=== PATIENT | male | born 1935 | race Asian ===

== ENCOUNTER 2019-06-22 18:36 | Inpatient (IN) | payer OTHER ==
[~2019-06-22] VITALS: Ht 167.6 cm; Wt 66.3 kg
[2019-06-22 19:33] LABS: Basophils # (auto) 0.1 10 ^3/uL (0-0.2); Basophils % (auto) 0.6 % (0.0-2.0); Eosinophils # (auto) 0.6 10 ^3/uL (0-0.8); Eosinophils % (auto) 6.6 % (0.0-7.0); Hematocrit 34.2 % (41.0-53.0); Hemoglobin 11.2 g/dL (13.5-17.5); Lymphocytes % (auto) 23.1 % (10.0-50.0); Mean Corpuscular Hemoglobin 31.4 pg (28.0-32.0); Mean Corpuscular Hgb Conc. 32.8 g/dL (32.0-36.0); Mean Corpuscular Volume 95.8 fL (80.0-100.0); Monocytes # (auto) 0.8 10 ^3/uL (0-1.3); Monocytes % (auto) 9.5 % (0.0-12.0); Neutrophils # (auto) 5.1 10 ^3/uL (1.6-8.6); Neutrophils % (auto) 60.2 % (37.0-80.0); Nucleated Red Blood Cells % 0.1 %; Platelet Count (auto) 182 10^3/uL (140-450); Red Blood Cells 3.57 10^6/uL (4.5-5.90); Red Cell Distribution Width 14.5 % (11.8-14.3); White Blood Cell 8.5 10^3/uL (4.4-10.8)
[2019-06-22 19:38] LABS: Albumin 3.6 g/dL (3.4-5.0); Anion Gap 7 (5-15); Blood Urea Nitrogen 22 mg/dL (7-18); Calcium 8.9 mg/dL (8.5-10.1); Carbon Dioxide 28 mmol/L (21-32); Chloride 105 mmol/L (98-107); Glucose 129 mg/dL (74-106); Potassium 4.1 mmol/L (3.5-5.1); Sodium 140 mmol/L (136-145)
[2019-06-22 19:44] LABS: Alanine Aminotransferase 36 U/L (16-61); Alkaline Phosphatase 142 U/L (45-117); Aspartate Aminotransferase 37 U/L (15-37); BUN/Creatinine Ratio 14.2; Bilirubin, Total 0.3 mg/dL (0.2-1.0); GFR African American 55 mL/min; GFR Non-African American 46 mL/min
[2019-06-22] MEDS ORDERED: MORPHINE SULF INJ 2 MG/ML SYRINGE 1ML IV ONE (21:15)
[2019-06-22] MEDS ORDERED: ONDANSETRON HCL 4 MG/2 ML VIAL IV ONE (21:15)
[2019-06-22] MEDS ORDERED: MORPHINE SULFATE 4 MG/ML SYR/VIAL IV PRN (22:15)
[2019-06-22] MEDS ORDERED: NITROGLYCERIN 0.4 MG SL TAB SL PRN ×2 (22:15)
[2019-06-22] MEDS ORDERED: ONDANSETRON HCL 4 MG/2 ML VIAL IV PRN (22:15)
[2019-06-22] MEDS ORDERED: MORPHINE SULF INJ 2 MG/ML SYRINGE 1ML IV PRN (22:15)
[2019-06-22 22:16] LABS: Partial Thromboplastin Time 25.4 sec (23.64-32.05)
[2019-06-22] MEDS: SODIUM CHLORIDE 0.9% 1,000 ML IV SCH (22:21)
[2019-06-23 02:25] VITALS: BP 166/82
--- NOTE | 2019-06-23 02:25 | NUR ---
Telemetry admit from [facility] admitted to Telemetry unit. Patient oriented to TATUM HUDDLESTON, primary RN, unit, room, bed, and unit policies regarding patient care and visiting hours. Patient now on continuous telemetry monitoring, tele box #[id number] and telemetry reading on arrival to unit is sinus rhythm. Patient placed on bedside oxygen, weighed by bedscale and encouraged to call if they need something. All questions and concerns addressed, patient verbalized understanding. Bed is locked in lowest position, side rails x 2 are up, call light is within reach, and bed alarm is on.
--- NOTE | 2019-06-23 03:00 | NUR ---
Chest Pain Patient complaining of chest pain to left side of his chest, mid to posterior axillary area (pain scale 6/10). Patient reports the chest pain has been intermittent x2 days. Patient denies nausea or shortness of breath at this time. EKG was performed and placed in hardchart. Vital signs were the following: Temp: 99.0, BP: 166/82, HR: 78, SPO2: 96% on room air, and RR: 18. Patient was medicated with nitroglycerin at 03:13 (see eMAR). Post nitroglycerin administration, patient's vital signs were the following: BP: 141/74, HR: 69, RR: 18, SPO2: 100% on 2L, NC. Patient reports improvement in his chest pain and now rates the pain as 4/10. No signs/symptoms of distress noted or verbalized at this time. Patient is laying in bed with even and unlabored respirations. Bed is locked in lowest position, side rails x 2 are up, call light is within reach, and bed alarm is on. Addendum: 06/23/19 at 0416 by TATUM HUDDLESTON RN RN No changes from baseline EKG.
[2019-06-23] MEDS ORDERED: LINA5TAB PO (04:07)
[2019-06-23] MEDS ORDERED: ATOR10TA52 PO (04:07)
[2019-06-23] MEDS ORDERED: GABA100C9 PO (04:07)
[2019-06-23] MEDS ORDERED: CARV3.1240 PO (04:07)
[2019-06-23] MEDS ORDERED: ASPI-404 PO (04:07)
[2019-06-23] MEDS ORDERED: AMLO5TAB15 PO ×2 (04:07→16:44)
[2019-06-23] MEDS ORDERED: LOSA25TA38 PO (04:07)
[2019-06-23 05:00] VITALS: BP 122/65
[2019-06-23 06:04] LABS: Basophils # (auto) 0 10 ^3/uL (0-0.2); Basophils % (auto) 0.6 % (0.0-2.0); Eosinophils # (auto) 0.5 10 ^3/uL (0-0.8); Eosinophils % (auto) 6.6 % (0.0-7.0); Hematocrit 31.1 % (41.0-53.0); Hemoglobin 10.5 g/dL (13.5-17.5); Lymphocytes # (auto) 1.4 10 ^3/uL (0.4-5.4); Lymphocytes % (auto) 17.5 % (10.0-50.0); Mean Corpuscular Hemoglobin 32.2 pg (28.0-32.0); Mean Corpuscular Hgb Conc. 33.7 g/dL (32.0-36.0); Mean Corpuscular Volume 95.5 fL (80.0-100.0); Monocytes # (auto) 0.9 10 ^3/uL (0-1.3); Monocytes % (auto) 10.5 % (0.0-12.0); Neutrophils # (auto) 5.3 10 ^3/uL (1.6-8.6); Neutrophils % (auto) 64.8 % (37.0-80.0); Platelet Count (auto) 155 10^3/uL (140-450); Red Blood Cells 3.26 10^6/uL (4.5-5.90); Red Cell Distribution Width 14.2 % (11.8-14.3); White Blood Cell 8.2 10^3/uL (4.4-10.8)
[2019-06-23 06:23] LABS: Calcium 8.4 mg/dL (8.5-10.1); Potassium 3.7 mmol/L (3.5-5.1)
[2019-06-23 06:27] LABS: BUN/Creatinine Ratio 11.7
--- NOTE | 2019-06-23 08:30 | NUR ---
Opening Note Assumed care of patient, he is A & O x4, no s/s of distress at this time. POC discussed with patient, he is comfortable at this time, no s/s of distress. Will continue to monitor Q1h and PRN.
[2019-06-23 09:00] VITALS: BP 132/69
[2019-06-23] MEDS: DOCUSATE SOD 100 MG CAP PO SCH (09:24)
[2019-06-23] MEDS: ASPirin 81 mg TAB PO SCH (09:24)
[2019-06-23] MEDS: CLOPIDOGREL BISULFATE 75 MG TAB PO SCH (09:25)
[2019-06-23] MEDS: LISINOPRIL 10 MG TAB PO SCH (09:26)
[2019-06-23] MEDS: CARVEDILOL 3.125 MG TAB PO SCH ×2 (09:27→22:22)
[2019-06-23 11:39] LABS: Protein, Urine 6.9 mg/dL (0.0-11.9)
[2019-06-23 11:52] LABS: Urine Bacteria NONE SEEN /hpf (None Seen); Urine Blood Negative /uL (Negative); Urine Specific Gravity 1.008 (1.001-1.035); Urine WBC <1 /hpf (0 - 3)
[2019-06-23 13:00] VITALS: BP 145/74
[2019-06-23 16:27] VITALS: BP 136/68
--- NOTE | 2019-06-23 16:30 | NUR ---
Dr. Kam at bedside. Informed him of patient home medication list. Updated in chart. Will await orders.
[2019-06-23] MEDS ORDERED: ATO40T PO (16:44)
[2019-06-23] MEDS ORDERED: CARV25TA55 PO (16:44)
[2019-06-23] MEDS ORDERED: LOSA-39 PO (16:44)
[2019-06-23] MEDS ORDERED: GABA300C10 PO (16:44)
[2019-06-23] MEDS: ACETAMINOPHEN 325 MG TAB PO PRN (16:53)
[2019-06-23] MEDS ORDERED: DEXTROSE (50%) 50ML SYRG IV PRN (17:00)
[2019-06-23] MEDS: InsuLIN REG 1unit/0.01ml Soln (100units/ml) SC SCH ×2 (17:00→22:00)
[2019-06-23] MEDS: ACCU-CHEK COMFORT CURVE STRIP VI SCH ×2 (18:00→22:05)
[2019-06-23] MEDS: SODIUM CHLORIDE 0.9% 1,000 ML IV SCH (18:28)
--- NOTE | 2019-06-23 20:12 | NUR ---
open note assumed care of pt, upon entering room pt awake, alert and oriented x4. pt on room air no dsitress noted or expressed. pt denied having any pain at this time. pt updated on plan of care. pt bed locked, low and 2x rails up. pt encouraged to call as needed, call light in reach. this nurse to round q1hr and prn. pt no additional complaints at this time.
[2019-06-23 22:00] VITALS: BP 128/69
[2019-06-23] MEDS: ATORVASTATIN 20 MG TAB PO SCH (22:23)
--- NOTE | 2019-06-23 23:27 | NUR ---
dr ordonez at bedside. pt localizes pain to left posterior flank, denies any pain in chest. no new orders. pt hs no complaints. call light in reach.
[2019-06-24 05:00] VITALS: BP 142/82
[2019-06-24] MEDS: SODIUM CHLORIDE 0.9% 1,000 ML IV SCH ×2 (05:57→14:05)
[2019-06-24] MEDS: ACCU-CHEK COMFORT CURVE STRIP VI SCH ×4 (06:16→22:26)
[2019-06-24] MEDS: InsuLIN REG 1unit/0.01ml Soln (100units/ml) SC SCH ×4 (06:16→22:00)
[2019-06-24 07:26] LABS: Basophils # (auto) 0 10 ^3/uL (0-0.2); Basophils % (auto) 0.6 % (0.0-2.0); Eosinophils # (auto) 0.5 10 ^3/uL (0-0.8); Eosinophils % (auto) 6.9 % (0.0-7.0); Hematocrit 31.8 % (41.0-53.0); Hemoglobin 10.6 g/dL (13.5-17.5); Lymphocytes # (auto) 1.5 10 ^3/uL (0.4-5.4); Lymphocytes % (auto) 23.6 % (10.0-50.0); Mean Corpuscular Hemoglobin 31.3 pg (28.0-32.0); Mean Corpuscular Hgb Conc. 33.4 g/dL (32.0-36.0); Mean Corpuscular Volume 93.6 fL (80.0-100.0); Monocytes # (auto) 0.7 10 ^3/uL (0-1.3); Monocytes % (auto) 10.5 % (0.0-12.0); Neutrophils # (auto) 3.8 10 ^3/uL (1.6-8.6); Neutrophils % (auto) 58.4 % (37.0-80.0); Nucleated Red Blood Cells % 0.1 %; Platelet Count (auto) 153 10^3/uL (140-450); White Blood Cell 6.6 10^3/uL (4.4-10.8)
[2019-06-24 07:27] LABS: Alanine Aminotransferase 28 U/L (16-61); Anion Gap 4 (5-15); Blood Urea Nitrogen 13 mg/dL (7-18); Calcium 8.6 mg/dL (8.5-10.1); Carbon Dioxide 29 mmol/L (21-32); Chloride 108 mmol/L (98-107); Glucose 102 mg/dL (74-106); Potassium 4.1 mmol/L (3.5-5.1); Sodium 141 mmol/L (136-145)
[2019-06-24 07:32] LABS: Alkaline Phosphatase 119 U/L (45-117); Aspartate Aminotransferase 24 U/L (15-37); BUN/Creatinine Ratio 11.5; Bilirubin, Total 0.7 mg/dL (0.2-1.0); GFR African American 80 mL/min; GFR Non-African American 66 mL/min; Total Protein 7.3 g/dL (6.4-8.2)
[2019-06-24 09:00] VITALS: BP 150/76
[2019-06-24] MEDS: ASPirin 81 mg TAB PO SCH (09:31)
[2019-06-24] MEDS: DOCUSATE SOD 100 MG CAP PO SCH (09:31)
[2019-06-24] MEDS: LISINOPRIL 10 MG TAB PO SCH (09:32)
[2019-06-24] MEDS: CLOPIDOGREL BISULFATE 75 MG TAB PO SCH (09:32)
[2019-06-24] MEDS: CARVEDILOL 3.125 MG TAB PO SCH (09:32)
[2019-06-24] MEDS ORDERED: ADENOSINE 58 MG in GIVE UN-DILUTED 0 ML IV STA (10:17)
[2019-06-24 12:38] VITALS: BP 165/77
[2019-06-24 13:00] VITALS: BP 147/70
[2019-06-24 17:00] VITALS: BP 125/65
--- NOTE | 2019-06-24 19:30 | NUR ---
Opening Shift Note Assumed care of patient, awake and alert. No S/S of distress/SOB or pain. POC discussed and questions answered. Bed is locked in lowest position with side rails up x2 for safety. Call light is within reach and patient encouraged to call for to call for assistance as needed, will continue to monitor for changes Q1hr and PRN.
[2019-06-24 22:23] VITALS: BP 121/58
[2019-06-24] MEDS: CARVEDILOL 12.5 MG TAB PO SCH (22:25)
[2019-06-24] MEDS: ATORVASTATIN 20 MG TAB PO SCH (22:25)
[2019-06-25] MEDS: SODIUM CHLORIDE 0.9% 1,000 ML IV SCH (00:35)
--- NOTE | 2019-06-25 02:54 | NUR ---
IV removal IV infiltrated, DC'd with clean sterile technique, catheter fully intact. Pressure dressing applied to site. Patient tolerated well. NOTE:
--- NOTE | 2019-06-25 03:23 | NUR ---
IV insertion IV access obtained, via clean sterile technique by inserting 20 gauge catheter at left hand after 2 attempt(s). IV secured properly. No trauma to site. Patient tolerated well.
[2019-06-25 05:06] VITALS: BP 141/59
[2019-06-25] MEDS: InsuLIN REG 1unit/0.01ml Soln (100units/ml) SC SCH ×3 (06:19→17:00)
[2019-06-25] MEDS: ACCU-CHEK COMFORT CURVE STRIP VI SCH ×3 (06:19→17:00)
[2019-06-25 06:58] LABS: Basophils # (auto) 0 10 ^3/uL (0-0.2); Basophils % (auto) 0.6 % (0.0-2.0); Eosinophils # (auto) 0.5 10 ^3/uL (0-0.8); Eosinophils % (auto) 7.6 % (0.0-7.0); Hematocrit 32.3 % (41.0-53.0); Hemoglobin 10.8 g/dL (13.5-17.5); Lymphocytes # (auto) 1.5 10 ^3/uL (0.4-5.4); Lymphocytes % (auto) 22.8 % (10.0-50.0); Mean Corpuscular Hemoglobin 31.6 pg (28.0-32.0); Mean Corpuscular Hgb Conc. 33.5 g/dL (32.0-36.0); Mean Corpuscular Volume 94.4 fL (80.0-100.0); Monocytes # (auto) 0.6 10 ^3/uL (0-1.3); Monocytes % (auto) 9.5 % (0.0-12.0); Neutrophils # (auto) 3.9 10 ^3/uL (1.6-8.6); Neutrophils % (auto) 59.5 % (37.0-80.0); Platelet Count (auto) 161 10^3/uL (140-450); Red Blood Cells 3.42 10^6/uL (4.5-5.90); White Blood Cell 6.6 10^3/uL (4.4-10.8)
[2019-06-25 07:28] LABS: Calcium 8.7 mg/dL (8.5-10.1); Potassium 3.7 mmol/L (3.5-5.1)
[2019-06-25 07:34] LABS: BUN/Creatinine Ratio 13.5; Bilirubin, Total 0.5 mg/dL (0.2-1.0); Total Protein 7.1 g/dL (6.4-8.2)
--- NOTE | 2019-06-25 07:35 | NUR ---
OPENING SHIFT NOTE: PATIENT RESTING IN BED. A/OX4 RESPIRATIONS EVEN AND UNLABORED. PATIENT UPDATED ON PLAN OF CARE, CALL LIGHT PLACED WITHIN REACH. FALL PRECAUTIONS IN PLACE. WILL CONTINUE TO MONITOR.
[2019-06-25 09:00] VITALS: BP 127/59
[2019-06-25] MEDS: DOCUSATE SOD 100 MG CAP PO SCH (09:01)
[2019-06-25] MEDS: ASPirin 81 mg TAB PO SCH (09:01)
[2019-06-25] MEDS: CARVEDILOL 12.5 MG TAB PO SCH (09:01)
[2019-06-25] MEDS: CLOPIDOGREL BISULFATE 75 MG TAB PO SCH (09:02)
[2019-06-25] MEDS: LISINOPRIL 10 MG TAB PO SCH (09:02)
[2019-06-25 13:00] VITALS: BP 147/68
[2019-06-25] MEDS ORDERED: LOSA-39 PO (14:50)
[2019-06-25] MEDS ORDERED: ASPI-404 PO (14:50)
[2019-06-25] MEDS ORDERED: ATO40T PO (14:50)
[2019-06-25] MEDS ORDERED: CARV25TA55 PO (14:50)
[2019-06-25] MEDS: ACETAMINOPHEN 325 MG TAB PO PRN (16:31)
[2019-06-25 17:00] VITALS: BP 121/70
--- NOTE | 2019-06-25 18:12 | NUR ---
DISCHARGE: PATIENT GIVEN ALL EDUCATION MATERIALS. PATIENT IV DISCONTINUED, MANUAL PRESSURE APPLIED. TELE RETURNED TO CARDIO UNIT. PATIENT LEFT WITH ALL BELONGINGS, AND AMBULATED OUT TO PRIVATE AUTO WITHOUT INCIDENCE.
[2019-06-26] MEDS ORDERED: SACUBITRIL-VALSARTAN 24mg/26mg TAB PO SCH (22:00)
== END 2019-06-25 18:00 | disposition home or self-care (01) | DRG 291 ==
LOC: ER 18:36 → TELE 18:37 → TELE-CENTR 06-23 02:25
PROVIDERS: ADMIT Hospitalist; ATTEND Internal Medicine
DX: I11.0 Hypertensive heart disease with heart failure (principal); N17.0 Acute kidney failure with tubular necrosis; E44.0 Moderate protein-calorie malnutrition; Q21.1 Atrial septal defect; I50.23 Acute on chronic systolic (congestive) heart failure; R07.89 Other chest pain; D63.8 Anemia in other chronic diseases classified elsewhere; E78.5 Hyperlipidemia, unspecified; I25.10 Atherosclerotic heart disease of native coronary artery without angina pectoris; Z79.82 Long term (current) use of aspirin; Z79.84 Long term (current) use of oral hypoglycemic drugs; Z82.49 Family history of ischemic heart disease and other diseases of the circulatory system; Z95.1 Presence of aortocoronary bypass graft; Z95.810 Presence of automatic (implantable) cardiac defibrillator; Z68.23 Body mass index [BMI] 23.0-23.9, adult
CPT/HCPCS: 36415; 71045; 76775; 78452; 80048; 80053; 80061; 81001; 82570; 82962; 83036; 83880; 84156; 84300; 84443; 84484; 85025; 85610; 85730; 93005; 93017; 93306; 93926; 96374; 96375; G0378; J0153; J2405